=== PATIENT | male | born 1975 | race African-American/Black ===

== ENCOUNTER 2017-10-06 12:23 | Emergency (ER) | payer SELFPAY ==
[~2017-10-06] VITALS: Ht 188 cm; Wt 113.6 kg
[~2017-10-06 12:23] MED LIST: BACTRIM DS TABL1 TAB PO; HYDROCODONE-APA1 TAB PO; LOPRESSOR25 MG PO; OXYCODONE HCL5 MG PO
[2017-10-06 12:31] VITALS: Ht 188 cm; Wt 113.6 kg
[2017-10-06] MEDS ORDERED: AUGMENTIN 875-11 TAB PO (13:37)
[2017-10-06] MEDS ORDERED: PERCOCET 5-3251 TAB PO (13:42)
[2017-10-06 15:01] VITALS: BP 138/86
== END 2017-10-06 15:02 | disposition home or self-care (01) ==
LOC: D.ER 12:23
DX: J01.20 Acute ethmoidal sinusitis, unspecified (principal); R51 Headache; J01.00 Acute maxillary sinusitis, unspecified; F17.200 Nicotine dependence, unspecified, uncomplicated

== ENCOUNTER 2018-03-29 23:42 | Emergency (ER) | payer SELFPAY ==
[~2018-03-29] VITALS: Ht 188 cm; Wt 113.6 kg
[~2018-03-29 23:42] MED LIST changes: +AUGMENTIN 875-11 TAB PO; +PERCOCET 5-3251 TAB PO
[2018-03-29 23:52] VITALS: Ht 188 cm; Wt 113.6 kg
[2018-03-30] MEDS ORDERED: BUTALB-APAP-CA1 EACH PO (01:07)
[2018-03-30 01:30] VITALS: BP 128/78
== END 2018-03-30 01:30 | disposition home or self-care (01) ==
LOC: D.ER 23:42
DX: G43.909 Migraine, unspecified, not intractable, without status migrainosus (principal); F17.200 Nicotine dependence, unspecified, uncomplicated

== ENCOUNTER 2019-08-24 01:30 | Emergency (ER) | payer OTHER ==
[~2019-08-24] VITALS: Ht 188 cm; Wt 113.6 kg
[~2019-08-24 01:30] MED LIST changes: +BUTALB-APAP-CA1 EACH PO
[2019-08-24 01:39] VITALS: Ht 188 cm; Wt 113.6 kg
[2019-08-24] MEDS ORDERED: METHOCARBAMOL500 MG PO (02:25)
[2019-08-24] MEDS ORDERED: TORADOL10 MG PO (02:25)
[2019-08-24 02:47] VITALS: BP 151/94
== END 2019-08-24 02:47 | disposition home or self-care (01) ==
LOC: D.ER 01:30
DX: S13.4XXA Sprain of ligaments of cervical spine, initial encounter (principal); S39.012A Strain of muscle, fascia and tendon of lower back, initial encounter; V89.2XXA Person injured in unspecified motor-vehicle accident, traffic, initial encounter; Y93.9 Activity, unspecified; Y92.9 Unspecified place or not applicable

== ENCOUNTER 2019-08-29 00:49 | Emergency (ER) | payer MEDICAID ==
[~2019-08-29] VITALS: Ht 188 cm; Wt 113.6 kg
[~2019-08-29 00:49] MED LIST changes: +METHOCARBAMOL500 MG PO; +TORADOL10 MG PO
[2019-08-29 00:55] VITALS: BP 131/83; Ht 188 cm; Wt 113.6 kg
[2019-08-29] MEDS ORDERED: HYDROCODON-ACE1 EAC2 PO (01:13)
== END 2019-08-29 02:02 | disposition home or self-care (01) ==
LOC: D.ER 00:49
DX: S16.1XXD Strain of muscle, fascia and tendon at neck level, subsequent encounter (principal); V89.2XXD Person injured in unspecified motor-vehicle accident, traffic, subsequent encounter